=== PATIENT | male | born 1930 | race Caucasian/White ===

== ENCOUNTER 2018-01-23 09:40 | Emergency (ER) | payer MEDICARE ==
--- NOTE | 2018-01-23 11:27 | RAD ---
Indication: Cough. 2 views of the chest including dual energy PA views demonstrates right basilar and left perihilar infiltrate. No evidence of alveolar consolidation is noted. No pneumothorax is noted. Patient status post changed sternal thoracotomy. IMPRESSION: Right basilar and left perihilar infiltrate. No alveolar consolidation is noted.
--- NOTE | 2018-01-23 11:30 | UC ---
Respiratory Complaint HPI - HPI Summary HPI Summary: Patient is here visiting family from [place] and will be here for the next month. He developed chest congestion and coughing yesterday that has gotten worse overnight. He denies fever, shortness of breath, chest pain, sore throat or ear pain. - History of Current Complaint Chief Complaint: UCRespiratory Stated Complaint: CHEST CONGESTION Time Seen by Provider: 01/23/18 11:14 Hx Obtained From: Patient Onset/Duration: Gradual Onset, Lasting Days - 1 DAY, Still Present Timing: Constant Severity Initially: Moderate Severity Currently: Moderate Pain Intensity: 0 Pain Scale Used: 0-10 Numeric Character: Cough: Nonproductive Aggravating Factors: Nothing Alleviating Factors: Nothing Associated Signs And Symptoms: Positive: Hoarseness. Negative: Dyspnea, Fever, Wheezing - Allergies/Home Medications Allergies/Adverse Reactions: Allergies Allergy/AdvReac Type Severity Reaction Status Date / Time No Known Allergies Allergy Verified 01/23/18 09:58 Home Medications: Home Medications Cholecalciferol (Vitamin D3) [Vitamin D3] 1,000 unit PO 01/23/18 [History] PMH/Surg Hx/FS Hx/Imm Hx Previously Healthy: Yes - Surgical History Surgical History: Yes Surgery Procedure, Year, and Place: appy,2 hernia repairs, prostate removal - Family History Known Family History: Positive: Hypertension - Social History Alcohol Use: Daily Substance Use Type: None Smoking Status (MU): Never Smoked Tobacco Review of Systems Constitutional: Negative ENT: Negative Respiratory: Cough Cardiovascular: Negative Gastrointestinal: Negative All Other Systems Reviewed And Are Negative: Yes Physical Exam Triage Information Reviewed: Yes Appearance: Well-Appearing, No Pain Distress, Well-Nourished Vital Signs: Initial Vital Signs Temp 98.5 F 01/23/18 09:53 Pulse 104 01/23/18 09:53 Resp 18 01/23/18 09:53 BP 130/83 01/23/18 09:53 Pulse Ox 99 01/23/18 09:53 Vital Signs Reviewed: Yes Eyes: Positive: Conjunctiva Clear ENT: Positive: Hearing grossly normal, Pharynx normal, TMs normal Neck: Positive: Supple, Nontender, No Lymphadenopathy Respiratory Exam: Normal Cardiovascular Exam: Normal Abdomen Description: Positive: Soft Musculoskeletal: Positive: No Edema Neurological: Positive: Alert Psychological: Positive: Age Appropriate Behavior Skin: Negative: rashes UC Diagnostic Evaluation - Laboratory O2 Sat by Pulse Oximetry: 99 - Radiology Xray Interpretation: Positive (See Comments) - CXR shows Right basilar and left perihilar infiltrate. Radiology Interpretation Completed By: Radiologist Respiratory Course/Dx - Differential Dx/Diagnosis Provider Diagnoses: BILATERAL PNEUMONIA Discharge - Sign-Out/Discharge Documenting (check all that apply): Discharge/Admit/Transfer - Discharge Plan Condition: Stable Disposition: HOME Prescriptions: levoFLOXacin [Levofloxacin] 750 mg PO DAILY #5 tablet Patient Education Materials: Pneumonia (ED) Referrals: No Primary Care Phys,NOPCP [Primary Care Provider] - Additional Instructions: CHEST X-RAY TODAY SHOWS RIGHT BASILAR AND LEFT PERIHILAR INFILTRATE. WILL COVER FOR PNEUMONIA WITH LEVOFLOXACIN. TAKE DAILY FOR 5 DAYS. OVER-THE- COUNTER IBUPROFEN NEEDED. RECOMMEND YOU REPEAT YOUR CHEST X-RAY IN 4-6 WEEKS WHEN YOU RETURN HOME TO [place] TO DOCUMENT RESOLUTION. GO TO THE CLOSEST ED WITHOUT FAIL IF YOU DEVELOP FEVER, SHORTNESS OF BREATH, CHEST PAIN OR ANY OTHER CONCERNING SYMPTOMS. - Billing Disposition and Condition Condition: STABLE Disposition: Home
[2018-01-23 11:41] VITALS: BP 141/93
== END 2018-01-23 11:40 | disposition home or self-care (01) ==
LOC: UCEAST 09:40
DX: J18.9 Pneumonia, unspecified organism (principal)
CPT/HCPCS: 71046; 99202; G0463

== ENCOUNTER 2018-02-07 07:39 | Emergency (ER) | payer MEDICARE ==
[2018-02-07 07:53] VITALS: BP 154/75
--- NOTE | 2018-02-07 08:59 | RAD ---
HISTORY: f/u pneumonia COMPARISONS: January 23, 2018 VIEWS: 4: Frontal dual-energy and lateral views of the chest. FINDINGS: CARDIOMEDIASTINAL SILHOUETTE: The cardiomediastinal silhouette is normal. MARCELA: The marcela are normal. PLEURA: The costophrenic angles are sharp. No pleural abnormalities are noted. LUNG PARENCHYMA: There is improved aeration of the right lung base. There is persistent linear opacification of the left infrahilar lung. ABDOMEN: The upper abdomen is clear. There is no subphrenic gas. BONES AND SOFT TISSUES: No bone or soft tissue abnormalities are noted. OTHER: None. IMPRESSION: IMPROVED AERATION OF THE RIGHT LUNG BASE WITH PERSISTENT LINEAR ATELECTASIS VERSUS PLEUROPARENCHYMAL SCARRING OF THE LEFT LOWER LUNG.
--- NOTE | 2018-02-07 09:49 | UC ---
Elder Ware Rebecca, scribed for Dany Beltrán MD on 02/07/18 at 0810 . General HPI - HPI Summary HPI Summary: Pt is an 87 y/o M who presents to [facility] c/o fatigue. Reports that he is not sleeping well, having barely slept last night. Notes that his hemorrhoids were bleeding last night, which is now resolved. Denies fever, chills, CP, weight changes, myalgias, nausea, dysuria. On 01/23 (15 days ago), he was treated at [facility] with 750 mg Levaquin for PNA after a CXR for which almost all his sx have resolved, though he continues to complain of a cough. Reports that he stays active and walked 3 miles yesterday. Leaves on a trip soon, either later today or tomorrow, and takes no other medications. - History of Current Complaint Chief Complaint: UCGeneralIllness Stated Complaint: TIRED Time Seen by Provider: 02/07/18 07:45 Hx Obtained From: Patient Onset/Duration: Still Present Current Severity: None Pain Intensity: 0 Pain Location at: NEGATIVE Aggravating: Nothing Alleviating: Nothing Associated Signs & Symptoms: Positive: Cough, Other - Fatigue. Negative: Fever - Allergy/Home Medications Allergies/Adverse Reactions: Allergies Allergy/AdvReac Type Severity Reaction Status Date / Time No Known Allergies Allergy Verified 01/23/18 09:58 PMH/Surg Hx/FS Hx/Imm Hx - Additional Past Medical History Additional PMH: NEGATIVE PMHx: HTN, COPD, Asthma, DM - Surgical History Surgical History: Yes Surgery Procedure, Year, and Place: appy,2 hernia repairs, prostate removal - Family History Known Family History: Positive: Hypertension - Social History Alcohol Use: Occasionally Substance Use Type: None Smoking Status (MU): Never Smoked Tobacco Review of Systems Constitutional: Fatigue, Other - Decreased sleep Skin: Negative Eyes: Negative ENT: Negative Respiratory: Cough Cardiovascular: Negative Gastrointestinal: Negative Genitourinary: Other - Bleeding hemorrhoids - resolved Motor: Negative Neurovascular: Negative Musculoskeletal: Negative Neurological: Negative Psychological: Negative All Other Systems Reviewed And Are Negative: Yes - Comments Additional Review of Systems Comments: NEGATIVE: Fever, myalgias, chills, nausea, dysuria, CP, weight changes Physical Exam - Summary Physical Exam Summary: Appearance: Well appearing, no pain distress Skin: warm, dry, reflects adequate perfusion Head/face: normal Eyes: EOMI, HARRY ENT: normal, mucous membranes moist, no nasal discharge Neck: supple, non-tender Respiratory: CTA, breath sounds present Cardiovascular: Irregularly irregular, pulses symmetrical Abdomen: non-tender, soft Bowel Sounds: present Musculoskeletal: normal, strength/ROM intact Neuro: normal, sensory motor intact, A&Ox3 Triage Information Reviewed: Yes Vital Signs: Initial Vital Signs Temp 97.4 F 02/07/18 07:47 Pulse 70 02/07/18 07:47 Resp 16 02/07/18 07:47 BP 154/75 02/07/18 07:47 Pulse Ox 97 02/07/18 07:47 Vital Signs Reviewed: Yes Diagnostics - Laboratory Diagnostic Studies Completed/Ordered: EKG: Done at 0819. Rate: Normal at 63 bpm. Frequent PACs. Normal axis, normal interval, normal ST - Radiology CXR Radiology Interpretation Completed By: Radiologist - IMPROVED AERATION OF THE RIGHT LUNG BASE WITH PERSISTENT LINEAR ATELECTASIS VERSUS PLEUROPARENCHYMAL SCARRING OF THE LEFT LOWER LUNG. Physician reviewed this report. Course/Dx - Course Course Of Treatment: Very well-appearing man for his age. Very active but recovering from recent pneumonia. Completed 5 day course of Levaquin 750. Feeling fatigued and having insomnia. Irregular heartbeat noted in several PACs on EKG. History of similar in the past. X-ray shows improving infiltrate. Blood work ordered here but will not be back today. Scheduled appointment for the patient to follow-up prior to traveling at 8:30 tomorrow in the [facility]. - Differential Dx - Multi-Symptom Provider Diagnoses: Recent community-acquired pneumonia, fatigue, premature atrial contractions Discharge - Sign-Out/Discharge Documenting (check all that apply): Discharge/Admit/Transfer - Discharge - Discharge Plan Condition: Good Disposition: HOME Prescriptions: DOXYcycline CAP(*) [DOXYcycline 100MG CAP(*)] 100 mg PO BID #10 cap Patient Education Materials: Community Acquired Pneumonia (ED) Referrals: [facility] [Outside] Additional Instructions: Stay well-hydrated. Melatonin for sleep. Return with chest pain, difficulty breathing, fevers, worse or other concerns. - Billing Disposition and Condition Condition: GOOD Disposition: Home The documentation as recorded by the Elder lazo Rebecca accurately reflects the service I personally performed and the decisions made by me, Dany Beltrán MD.
[2018-02-07 10:17] LABS: Hematocrit 49 % (42-52); Hemoglobin 16.5 g/dl (14.0-18.0); Mean Corpuscular HGB Conc 34 g/dl (31-36); Mean Corpuscular Hemoglobin 33 pg (27-31); Mean Corpuscular Volume 97 fL (80-94); Mean Platelet Volume 7.9 um3 (7.4-10.4); Platelet Count 342 10^3/ul (150-450); Red Blood Count 5.04 10^6/ul (4.00-5.40); Red Cell Distribution Width 14 % (10.5-15); White Blood Count 7.3 10^3/ul (3.5-10.8)
[2018-02-07 10:30] LABS: EGFR Non-African American 58.1 (>60)
[2018-02-07 11:11] LABS: ABS Basophils 0.1 10^3/ul (0-0.2); ABS Eosinophils 0.2 10^3/ul (0-0.6); ABS Lymphocytes 1.5 10^3/ul (1.0-4.8); ABS Monocytes 0.9 10^3/ul (0-0.8); ABS Neutrophils 4.6 10^3/ul (1.5-7.7); ABS Nucleated RBC 0 10^3/ul; Eosinophil % 2.2 % (0-6); Lymphocyte % 20.4 % (25-47); Nucleated Red Blood Cells % 0.1
== END 2018-02-07 09:20 | disposition home or self-care (01) ==
LOC: UCEAST 07:39
DX: R53.83 Other fatigue (principal); J18.9 Pneumonia, unspecified organism; I49.1 Atrial premature depolarization; Z82.49 Family history of ischemic heart disease and other diseases of the circulatory system
CPT/HCPCS: 36415; 71046; 80048; 84443; 84484; 85025; 93005; 99212; G0463